=== PATIENT | female | born 1990 | race Caucasian/White ===

== ENCOUNTER → 2024-08-04 10:40 | Outpatient (BNVA) | payer MEDICAID, SELFPAY | PROVIDERS: PCP Internal Medicine; Visit Provider Internal Medicine | DX: E11.65 Type 2 diabetes mellitus with hyperglycemia (principal) | CPT/HCPCS: 82947; 83036; 99202 ==

== ENCOUNTER 2024-11-10 09:47 | Outpatient (AMB) | payer MEDICAID, SELFPAY ==
--- NOTE | 2024-11-10 09:52 | A.OFFVIS_ITS ---
Vital Signs 11/10/24 09:54 Height 5 ft 8 in Weight 229 lb 4.492 oz BMI 34.9 BP 114/76 Blood Pressure Location Rt brachial Position Sitting Pulse 87 Pulse Source Pulse Oximeter Intake Visit Reasons: DM Intake Note: Patient presents today for a follow-up on Type 2 Diabetes Mellitus: Last Diabetic eye exam was on: OVER DUE Last Podiatry exam was on: Does not see a Uniform Room Attendant Most recent HbA1c: 7.4%, 11/10/2024 Random Glucose- 231 mg/dL, Today Central Office Mechanic Required: No Accompanied by: Self / Same As Patient Allergies Penicillins Allergy (Mild, Verified 11/10/24 09:53) Unknown HPI Comments Details: The patient is a 33 year old female with diabetes follow up. She is currently Diagnosed 2016-diet controlled for awhile Current medications: With medications changed from Metformin 500x2 daily, trulicity & actos to metformin and lantus 10 units nightly, humalog ss. Has not yet started the insulin. Previous meds: Currentl off trulicity and actos 2/2 . Jardiance caused yeast infections. A1C today 7.4%, A1C in Jul 7.7% A1C in [place] 11.1. Has freestyle ynes 3 Sometimes overnight lows then high in AM. Treats with juice prn Family history of diabetes Eye exam-DUE ROS CONSTITUTIONAL: Denies weight loss, fever and chills. HEENT: Denies changes in vision and hearing. RESPIRATORY: Denies SOB and cough. CV: Denies palpitations and CP GI: Denies abdominal pain, nausea, vomiting and diarrhea. : Denies dysuria and urinary frequency. MSK: Denies new myalgia and joint pain. SKIN: Denies rash and pruritus. NEUROLOGICAL: Denies headache PSYCHIATRIC: Denies recent changes in mood. PHYSICAL EXAM: GENERAL: Alert and oriented x 3. NAD EYES: EOMI. Anicteric. HENT: Moist mucous membranes. No scleral icterus. No cervical lymphadenopathy. LUNGS: Clear to auscultation bilaterally. CARDIOVASCULAR: Regular rate and rhythm. No murmur. No JVD. ABDOMEN: Soft, non-tender +bs EXTREMITIES: No edema. Non-tender. SKIN: No rashes or lesions. Warm. NEUROLOGIC: No focal neurological deficits. CN II-XII grossly intact PSYCHIATRIC: Cooperative. Appropriate mood and affect FORMERLY [facility], [facility]1983 Medical History Panic attack Mild asthma Type 2 diabetes mellitus with hyperglycemia HTN (hypertension) Surgical History Hx of section Family History Father No problems noted. Mother No problems noted. Social History Unable to assess alcohol history related to: Unable to respond Patient Tobacco Use Status: Current everyday Tobacco user Physical Exam Vital Signs: Last Vital Signs Pulse 87 11/10/24 09:54 BP 114/76 11/10/24 09:54 BMI result Body Mass Index 34.9 Results AMB Hemoglobin A1c AMB Hemoglobin A1c 7.4 % Last Edit by HOLGER Arora on 11/10/24 10:12 Results Reviewed Results Reviewed: Laboratory Last Values Glucose (Clinic) 231 mg/dL (60-115) H 11/10/24 09:58 Assessment & Plan Assessment & Plan (1) Type 2 diabetes mellitus with hyperglycemia: Code(s): E11.65 - Type 2 diabetes mellitus with hyperglycemia Category: Medical Qualifiers: Diabetes mellitus senior living insulin use: unspecified senior living insulin use status Qualified Code(s): E11.65 - Type 2 diabetes mellitus with hyperglycemia Plan: We discussed starting the Lantus 10 units and continuing metformin She needs to get her CGM properly set up-she will see ems educator She will titrate lantus every few days to obtain goal fasting glucose or sooner if develops hypoglycemia Orders: Orders AMB Hemoglobin A1c Today E11.65 - Type 2 diabetes mellitus with hyperglycemia Referrals Diabetes Education Referral E11.65 - Type 2 diabetes mellitus with hyperglyc jey, Z34.90 - Encounter for supervision of normal , unspecified, unspecified trimester, Z79.4 - remote computer terminal operator (current) use of insulin Medications: New metformin 500 mg PO BID 180 tabs 1RF Coding Level of Care Code Est Pt Level 4 (16489) Diagnoses Type 2 diabetes mellitus with hyperglycemia, unspecified whether senior living insulin use E11.65 Diabetes mellitus senior living insulin use: unspecified senior living insulin use status
[2024-11-10 09:54] VITALS: BP 114/76; PULSE 87; BMI 34.9
[2024-11-10 10:01] LABS: Glucose, Whole Blood 231 mg/dL (60-115)
== END 2024-11-10 10:29 | disposition home or self-care (01) ==
PROVIDERS: PCP Internal Medicine; Visit Provider Internal Medicine
DX: E11.65 Type 2 diabetes mellitus with hyperglycemia (principal)

== ENCOUNTER → 2024-11-10 09:47 | Outpatient (BNVA) | payer MEDICAID, SELFPAY | PROVIDERS: PCP Internal Medicine; Visit Provider Internal Medicine | DX: O24.119 Pre-existing type 2 diabetes mellitus, in pregnancy, unspecified trimester (principal); E11.65 Type 2 diabetes mellitus with hyperglycemia; Z79.84 Long term (current) use of oral hypoglycemic drugs; Z79.4 Long term (current) use of insulin | CPT/HCPCS: 82947; 83036; 99212 ==

== ENCOUNTER 2025-01-19 08:31 | Outpatient (AMB) | payer MEDICAID, SELFPAY ==
--- NOTE | 2025-01-19 08:35 | A.OFFVIS_ITS ---
Vital Signs 01/19/25 08:38 Height 5 ft 8 in Weight 246 lb 14.684 oz BMI 37.5 BP 132/80 Blood Pressure Location Rt brachial Position Sitting Pulse 96 Pulse Source Pulse Oximeter Pulse Oximetry (%) 97 Oxygen Delivery Method Room Air Intake Visit Reasons: T2DM Intake Note: Patient presents today for a follow-up on Type 2 Diabetes Mellitus: Last Diabetic eye exam was on: OVER DUE Last Podiatry exam was on: Does not see a Crimping Machine Operator Most recent HbA1c: 7.0% 01/19/2025 Random Glucose- 142 mg/dL, Today Floor Person Required: No Accompanied by: Self / Same As Patient Allergies Penicillins Allergy (Mild, Verified 11/10/24 09:53) Unknown HPI Comments Details: The patient is a 33 year old female with diabetes follow up. She is currently Diagnosed 2016-diet controlled for awhile Current medications: With medications changed from Metformin 500x2 daily, trulicity & actos to metformin and lantus 10 units nightly, humalog ss- this is now at tresiba 20 units, humalog 10-20 with meals. Previous meds: Currently off trulicity and actos 2/2 . Jardiance caused yeast infections. A1C today 7.0% from 7.4%, A1C in Jul 7.7% A1C in [place] 11.1. Has UltiZen ynes 3 and has dexcom prefers the latter. Needs DE to set up correctly No readings <70. Feels low around 100. Following with MFM. Treats with juice prn following r/o 15s Family history of diabetes Eye exam-DUE ROS CONSTITUTIONAL: Denies weight loss, fever and chills. HEENT: Denies changes in vision and hearing. RESPIRATORY: Denies SOB and cough. CV: Denies palpitations and CP GI: Denies abdominal pain, nausea, vomiting and diarrhea. : Denies dysuria and urinary frequency. MSK: Denies new myalgia and joint pain. SKIN: Denies rash and pruritus. NEUROLOGICAL: Denies headache PSYCHIATRIC: Denies recent changes in mood. PHYSICAL EXAM: GENERAL: Alert and oriented x 3. NAD EYES: EOMI. Anicteric. HENT: Moist mucous membranes. No scleral icterus. No cervical lymphadenopathy. LUNGS: Clear to auscultation bilaterally. CARDIOVASCULAR: Regular rate and rhythm. No murmur. No JVD. ABDOMEN: Soft, non-tender +bs EXTREMITIES: No edema. Non-tender. SKIN: No rashes or lesions. Warm. NEUROLOGIC: No focal neurological deficits. CN II-XII grossly intact PSYCHIATRIC: Cooperative. Appropriate mood and affect [facility] Medical History Panic attack Mild asthma Type 2 diabetes mellitus with hyperglycemia HTN (hypertension) Surgical History Hx of section Family History Father No problems noted. Mother No problems noted. Social History Unable to assess alcohol history related to: Unable to respond Patient Tobacco Use Status: Current everyday Tobacco user Physical Exam Vital Signs: Last Vital Signs Pulse 96 01/19/25 08:38 BP 132/80 01/19/25 08:38 Pulse Ox 97 01/19/25 08:38 Oxygen Delivery Method Room Air 01/19/25 08:38 BMI result Body Mass Index 37.5 Results AMB Hemoglobin A1c AMB Hemoglobin A1c 7.0 % Last Edit by HOLGER Arora on 01/19/25 08:53 Results Reviewed Results Reviewed: Laboratory Last Values Glucose (Clinic) 142 mg/dL (60-115) H 01/19/25 08:41 Hgb A1c (Clinic) 7.0 % (4.0-6.0) H 01/19/25 08:52 Assessment & Plan Assessment & Plan (1) Type 2 diabetes mellitus with hyperglycemia: Code(s): E11.65 - Type 2 diabetes mellitus with hyperglycemia Category: Medical Qualifiers: Diabetes mellitus intermodal dispatcher insulin use: unspecified residential insulin use status Qualified Code(s): E11.65 - Type 2 diabetes mellitus with hyperglycemia (2) Insulin long-term use: Code(s): Z79.4 - intermission coordinator (current) use of insulin Category: Medical (3) : Code(s): Z34.90 - Encounter for supervision of normal , unspecified, unspecified trimester Category: Medical Qualifiers: Weeks of gestation: unspecified Qualified Code(s): Z34.90 - Encounter for supervision of normal , unspecified, unspecified trimester Plan Type 2 diabetes insulin with controlled but tighter glycemic control optimal Adjusted humalog scale higher, adjusted toujeo up to 30 Upcoming MFM Will f/up in 3 months or sooner as needed Orders: Orders AMB Hemoglobin A1c Today E11.65 - Type 2 diabetes mellitus with hyperglycemia Medications: Changed From insulin lispro (Humalog KwikPen (U-100) Insulin) Three times daily subcutaneous prior to meals BG 150-200 Take 6 units BG 201-250 Take 8 units BG 251-300 Take 10 units BG >300 Take 12 units 1 sliding scale dose subcut USEASDIRECTD 30 mL 3RF To insulin lispro (Humalog KwikPen (U-100) Insulin) Three times daily subcutaneous prior to meals BG 150-200 Take 14 units BG 201-250 Take 16 units BG 251-300 Take 18 units BG >300 Take 20 units 1 sliding scale dose subcut USEASDIRECTD 45 mL 3RF From insulin glargine (Lantus Solostar U-100 Insulin) 20 units (0.2 mL) subcut QPM 45 mL 3RF To insulin glargine (Lantus Solostar U-100 Insulin) 30 units (0.3 mL) subcut QPM 45 mL 3RF Coding Level of Care Code Est Pt Level 4 (82990) Diagnoses Type 2 diabetes mellitus with hyperglycemia, unspecified whether residential insulin use E11.65 Diabetes mellitus intermodal dispatcher insulin use: unspecified intermodal dispatcher insulin use status Insulin long-term use Z79.4 , unspecified gestational age Z34.90 Weeks of gestation: unspecified
[2025-01-19 08:38] VITALS: BP 132/80; PULSE 96; O2SAT 97; BMI 37.5
[2025-01-19 08:45] LABS: Glucose, Whole Blood 142 mg/dL (60-115)
== END 2025-01-19 09:00 | disposition home or self-care (01) ==
LOC: HO.ENCR 08:32
PROVIDERS: PCP Internal Medicine; Visit Provider Internal Medicine
DX: E11.65 Type 2 diabetes mellitus with hyperglycemia (principal); Z79.4 Long term (current) use of insulin; Z34.90 Encounter for supervision of normal pregnancy, unspecified, unspecified trimester

== ENCOUNTER → 2025-01-19 08:31 | Outpatient (BNVA) | payer MEDICAID, SELFPAY | PROVIDERS: PCP Internal Medicine; Visit Provider Internal Medicine | DX: O24.919 Unspecified diabetes mellitus in pregnancy, unspecified trimester (principal); E11.65 Type 2 diabetes mellitus with hyperglycemia; Z3A.00 Weeks of gestation of pregnancy not specified; Z79.84 Long term (current) use of oral hypoglycemic drugs; Z79.4 Long term (current) use of insulin | CPT/HCPCS: 82947; 83036; 99212 ==

== ENCOUNTER 2025-04-20 08:38 | Outpatient (AMB) | payer MEDICAID, SELFPAY ==
[2025-04-20 08:41] VITALS: BP 128/80; PULSE 108; O2SAT 97; BMI 40.9
--- NOTE | 2025-04-20 08:41 | A.OFFVIS_ITS ---
Vital Signs 04/20/25 08:41 Height 5 ft 8 in Weight 268 lb 15.423 oz BMI 40.9 BP 128/80 Blood Pressure Location Rt brachial Position Sitting Pulse 108 H Pulse Source Pulse Oximeter Pulse Oximetry (%) 97 Oxygen Delivery Method Room Air Intake Visit Reasons: T2DM Intake Note: Patient presents today for a follow-up on Type 2 Diabetes Mellitus: Last Diabetic eye exam was on: 11/24/2024, [facility] Last Podiatry exam was on: Does not see a Industrial Sales Manager Most recent HbA1c: 6.6%, 04/20/2025 Random Glucose- 162 mg/dL, Today Accompanied by: Self / Same As Patient Allergies Penicillins Allergy (Mild, Verified 11/10/24 09:53) Unknown HPI Comments Details: The patient is a 33 year old female with diabetes follow up. She is currently . Diagnosed 2016-diet controlled for awhile Current medications: Lantus 70 units Lispro 70 units tidcc Metformin managed with MFM With medications changed from Metformin 500x2 daily, trulicity & actos Previous meds: Currently off trulicity and actos 2/2 . Jardiance caused yeast infections. A1C today 6.6% 7.0% from 7.4%, A1C in Jul 7.7% A1C in [place] 11.1. Has KellBenx ynes 3 and has dexcom prefers the latter. Needs DE to set up correctly No readings <70. Feels low around 100. Following with MFM. Treats with juice prn following r/o 15s Family history of diabetes Eye exam-11/2024 ROS CONSTITUTIONAL: Denies weight loss, fever and chills. HEENT: Denies changes in vision and hearing. RESPIRATORY: Denies SOB and cough. CV: Denies palpitations and CP GI: Denies abdominal pain, nausea, vomiting and diarrhea. : Denies dysuria and urinary frequency. MSK: Denies new myalgia and joint pain. SKIN: Denies rash and pruritus. NEUROLOGICAL: Denies headache PSYCHIATRIC: Denies recent changes in mood. PHYSICAL EXAM: GENERAL: Alert and oriented x 3. NAD EYES: EOMI. Anicteric. HENT: Moist mucous membranes. No scleral icterus. No cervical lymphadenopathy. LUNGS: Clear to auscultation bilaterally. CARDIOVASCULAR: Regular rate and rhythm. No murmur. No JVD. ABDOMEN: Soft, non-tender +bs EXTREMITIES: No edema. Non-tender. SKIN: No rashes or lesions. Warm. NEUROLOGIC: No focal neurological deficits. CN II-XII grossly intact PSYCHIATRIC: Cooperative. Appropriate mood and affect FORMERLY [facility] Medical History Panic attack Mild asthma Type 2 diabetes mellitus with hyperglycemia HTN (hypertension) Surgical History Hx of section Family History Father No problems noted. Mother No problems noted. Social History Unable to assess alcohol history related to: Unable to respond Patient Tobacco Use Status: Current everyday Tobacco user Physical Exam Vital Signs: Last Vital Signs Pulse 108 H 04/20/25 08:41 BP 128/80 04/20/25 08:41 Pulse Ox 97 04/20/25 08:41 Oxygen Delivery Method Room Air 04/20/25 08:41 BMI result Body Mass Index 40.9 Results AMB Hemoglobin A1c AMB Hemoglobin A1c 6.6 % Last Edit by HOLGER Arora on 04/20/25 09:01 Results Reviewed Results Reviewed: Laboratory Last Values Glucose (Clinic) 162 mg/dL (60-115) H 04/20/25 08:46 Assessment & Plan Assessment & Plan (1) Type 2 diabetes mellitus with hyperglycemia: Code(s): E11.65 - Type 2 diabetes mellitus with hyperglycemia Category: Medical Qualifiers: Diabetes mellitus fci insulin use: unspecified terminologist insulin use status Qualified Code(s): E11.65 - Type 2 diabetes mellitus with hyperglycemia (2) Insulin long-term use: Code(s): Z79.4 - senior living (current) use of insulin Category: Medical (3) : Code(s): Z34.90 - Encounter for supervision of normal , unspecified, unspecified trimester Category: Medical Qualifiers: Weeks of gestation: unspecified Qualified Code(s): Z34.90 - Encounter for supervision of normal , unspecified, unspecified trimester Plan 34 year old female for follow up Diabetes is well controlled on current medications Post we can transition her back to regular regimen Orders: Orders AMB Hemoglobin A1c Today E11.65 - Type 2 diabetes mellitus with hyperglycemia Medications: Changed From insulin glargine (Lantus Solostar U-100 Insulin) 30 units (0.3 mL) subcut QPM 45 mL 3RF To insulin glargine (Lantus Solostar U-100 Insulin) 70 units (0.7 mL) subcut QPM 45 mL 3RF From insulin lispro (Humalog KwikPen (U-100) Insulin) Three times daily subcutaneous prior to meals BG 150-200 Take 14 units BG 201-250 Take 16 units BG 251-300 Take 18 units BG >300 Take 20 units 1 sliding scale dose subcut USEASDIRECTD 45 mL 3RF To insulin lispro (Humalog KwikPen (U-100) Insulin) 70 units TIDcc 1 sliding scale dose subcut USEASDIRECTD 45 mL 3RF Coding Level of Care Code Est Pt Level 4 (83059) Diagnoses Type 2 diabetes mellitus with hyperglycemia, unspecified whether fci insulin use E11.65 Diabetes mellitus terminologist insulin use: unspecified fci insulin use status Insulin long-term use Z79.4 , unspecified gestational age Z34.90 Weeks of gestation: unspecified
[2025-04-20 08:49] LABS: Glucose, Whole Blood 162 mg/dL (60-115)
== END 2025-04-20 09:01 | disposition home or self-care (01) ==
LOC: HO.ENCR 08:39
PROVIDERS: PCP Internal Medicine; Visit Provider Internal Medicine
DX: E11.65 Type 2 diabetes mellitus with hyperglycemia (principal); Z79.4 Long term (current) use of insulin; Z34.90 Encounter for supervision of normal pregnancy, unspecified, unspecified trimester

== ENCOUNTER → 2025-04-20 08:38 | Outpatient (BNVA) | payer MEDICAID, SELFPAY | PROVIDERS: PCP Internal Medicine; Visit Provider Internal Medicine | DX: O24.119 Pre-existing type 2 diabetes mellitus, in pregnancy, unspecified trimester (principal); E11.65 Type 2 diabetes mellitus with hyperglycemia; Z79.4 Long term (current) use of insulin; Z3A.00 Weeks of gestation of pregnancy not specified | CPT/HCPCS: 82947; 83036; 99212 ==

== ENCOUNTER 2025-07-07 10:23 | Outpatient (AMB) | payer MEDICAID, SELFPAY ==
[2025-07-07 10:27] VITALS: BP 126/90; PULSE 98; O2SAT 96; BMI 38.2
--- NOTE | 2025-07-07 10:27 | A.OFFVIS_ITS ---
Vital Signs 07/07/25 10:27 07/07/25 10:51 Height 5 ft 8 in Weight 251 lb 5.231 oz BMI 38.2 BP 126/90 H 134/86 Blood Pressure Location Rt brachial Rt brachial Position Sitting Pulse 98 Pulse Oximetry (%) 96 Oxygen Delivery Method Room Air Intake Visit Reasons: DMT2 Intake Note: Patient presents today for a follow-up on Type 2 Diabetes Mellitus: Patient no longer on insulin Last Diabetic eye exam was on: 11/24/2024, [facility] Last Podiatry exam was on: Does not see a Clinical Care Leader Most recent HbA1c: 6.6%, 04/20/2025 Random Glucose- 167 mg/dL, Today Moisture Meter Operator Required: No Accompanied by: Self / Same As Patient Allergies Penicillins Allergy (Mild, Verified 07/07/25 10:34) Unknown Medication List - Last Reconciled 07/07/25 by Hali Herrera MD albuterol sulfate 90 mcg/actuation (Ventolin HFA) 2 puffs inhalation Q6H PRN alcohol swabs (Alcohol Pads) 1 pad topical .four times daily 30 days bupropion HCl XL 150 mg PO QAM Dexcom G7 Content Specialist (blood-glucose,tobacco weigher,cont) As directed NS Dexcom G7 Sensor (blood-glucose sensor) every 10 days NS FreeStyle Mary 3 Sensor (blood-glucose sensor) every 14 days NS insulin glargine (Lantus Solostar U-100 Insulin) 70 units (0.7 mL) subcut QPM insulin lispro (Humalog KwikPen (U-100) Insulin) 1 sliding scale dose subcut USEASDIRECTD metformin 500 mg PO BID omeprazole 20 mg PO QAM pen needle, diabetic (BD Ultra-Fine Dayan Pen Needle) four times daily rosuvastatin 20 mg PO DAILY tirzepatide (Mounjaro) 2.5 mg (0.5 mL) subcut QWEEK valsartan 80 mg PO DAILY HPI Comments Details: The patient is a 34 year old female with diabetes follow up. Diagnosed 2016-diet controlled for awhile Now and off insulin. She followed with MFM during Current medications: Actos 30mg daily Mounjaro 2.5mg. She just took her second dose she is holding metformin-she has GI issues but is willing if needed Previous meds: trulicity-gi SE. Jardiance caused yeast infections. Insulin with A1C Nadia 6.6% 7.0% from 7.4% from 7.7% from 11.1. CGM reviewed. GMI 8.5%, 17% TGT, 62% high, 21 % very high No readings <70. Feels low around 100. Treats with juice prn following r/o 15s Family history of diabetes Eye exam-11/2024 ROS CONSTITUTIONAL: Denies weight loss, fever and chills. HEENT: Denies changes in vision and hearing. RESPIRATORY: Denies SOB and cough. CV: Denies palpitations and CP GI: Denies abdominal pain, nausea, vomiting and diarrhea. : Denies dysuria and urinary frequency. MSK: Denies new myalgia and joint pain. SKIN: Denies rash and pruritus. NEUROLOGICAL: Denies headache PSYCHIATRIC: Denies recent changes in mood. PHYSICAL EXAM: GENERAL: Alert and oriented x 3. NAD EYES: EOMI. Anicteric. HENT: Moist mucous membranes. No scleral icterus. No cervical lymphadenopathy. LUNGS: Clear to auscultation bilaterally. CARDIOVASCULAR: Regular rate and rhythm. No murmur. No JVD. ABDOMEN: Soft, non-tender +bs EXTREMITIES: No edema. Non-tender. SKIN: No rashes or lesions. Warm. NEUROLOGIC: No focal neurological deficits. CN II-XII grossly intact PSYCHIATRIC: Cooperative. Appropriate mood and affect [facility] Medical History (Updated 07/07/25 @ 13:56 by Hali Herrera MD) Panic attack Mild asthma Type 2 diabetes mellitus with hyperglycemia HTN (hypertension) Surgical History Hx of section Family History Father No problems noted. Mother No problems noted. Social History Unable to assess alcohol history related to: Unable to respond Patient Tobacco Use Status: Current everyday Tobacco user Physical Exam Vital Signs: Last Vital Signs Pulse 98 07/07/25 10:27 BP 134/86 07/07/25 10:51 Pulse Ox 96 07/07/25 10:27 Oxygen Delivery Method Room Air 07/07/25 10:27 BMI result Body Mass Index 38.2 Results Reviewed Results Reviewed: Laboratory Last Values Glucose (Clinic) 167 mg/dL (60-115) H 07/07/25 10:32 Assessment & Plan Assessment & Plan (1) Type 2 diabetes mellitus with hyperglycemia: Code(s): E11.65 - Type 2 diabetes mellitus with hyperglycemia Category: Medical Qualifiers: Diabetes mellitus medical terminologist insulin use: unspecified [facility] insulin use status Qualified Code(s): E11.65 - Type 2 diabetes mellitus with hyperglycemia Plan 34 year old female for DM follow up. DM uncontrolled at present continue mounjaro 2.5mg with goal to uptitrate. Start glipizide 10mg daily. Continue actos. Will try to keep her off metformin Treat any hypoglycemia by rules of 15s Return for A1C or sooner as needed Medications: New glipizide ER 10 mg (2 x 5 mg) PO DAILY 180 tabs 1RF On Hold metformin Hold Comment: Doctor's Order 500 mg PO BID 180 tabs 1RF Coding Level of Care Code Est Pt Level 4 (60171) Diagnoses Type 2 diabetes mellitus with hyperglycemia, unspecified whether [facility] insulin use E11.65 Diabetes mellitus [facility] insulin use: unspecified [facility] insulin use status
[2025-07-07 10:35] LABS: Glucose, Whole Blood 167 mg/dL (60-115)
[2025-07-07 10:51] VITALS: BP 134/86
== END 2025-07-07 10:53 | disposition home or self-care (01) ==
LOC: HO.ENCR 10:24
PROVIDERS: PCP Internal Medicine; Visit Provider Internal Medicine
DX: E11.65 Type 2 diabetes mellitus with hyperglycemia (principal)

== ENCOUNTER → 2025-07-07 10:23 | Outpatient (BNVA) | payer MEDICAID, SELFPAY | PROVIDERS: PCP Internal Medicine; Visit Provider Internal Medicine | DX: E11.65 Type 2 diabetes mellitus with hyperglycemia (principal); Z79.85 Long-term (current) use of injectable non-insulin antidiabetic drugs | CPT/HCPCS: 82947; 99212 ==

== ENCOUNTER 2025-09-07 09:10 | Outpatient (AMB) | payer MEDICAID, SELFPAY ==
--- NOTE | 2025-09-07 09:12 | MHC.OFFVIS ---
Vital Signs 09/07/25 09:13 Height 5 ft 8 in Weight 238 lb 1.588 oz BMI 36.2 BP 118/80 Blood Pressure Location Rt brachial Position Sitting Pulse 97 Pulse Source Pulse Oximeter Pulse Oximetry (%) 97 Oxygen Delivery Method Room Air Intake Visit Reasons: T2DM Intake Note: Patient presents today for a follow-up on Type 2 Diabetes Mellitus: Last Diabetic eye exam was on: 11/24/2024, [facility] Last Podiatry exam was on: Does not see a Digital Product Manager Most recent HbA1c: 7.0%, 09/07/1025 Random Glucose- 138 mg/dL, Today Type Photography Supervisor Required: No Accompanied by: Self / Same As Patient Allergies Penicillins Allergy (Mild, Verified 09/07/25 09:12) Unknown Medication List - Last Reconciled 09/07/25 by Hali Herrera MD albuterol sulfate 90 mcg/actuation (Ventolin HFA) 2 puffs inhalation Q6H PRN alcohol swabs (Alcohol Pads) 1 pad topical .four times daily 30 days blood-glucose sensor (FreeStyle Mary 2 Plus Sensor) bupropion HCl XL 150 mg PO QAM Dexcom G7 Alterations Supervisor (blood-glucose,senior controller,cont) As directed NS Dexcom G7 Sensor (blood-glucose sensor) every 10 days NS FreeStyle Mary 3 Sensor (blood-glucose sensor) every 14 days NS glipizide ER 10 mg (2 x 5 mg) PO DAILY metformin 500 mg PO BID Held on 07/07/25. Instructions: Doctor's Order omeprazole 20 mg PO QAM pen needle, diabetic (BD Ultra-Fine Dayan Pen Needle) four times daily rosuvastatin 20 mg PO DAILY tirzepatide (Mounjaro) 5 mg (0.5 mL) subcut QWEEK tirzepatide (Mounjaro) 2.5 mg (0.5 mL) subcut QWEEK valsartan 80 mg PO DAILY HPI Comments Details: The patient is a 34 year old female with diabetes follow up. Diagnosed 2015-diet controlled for awhile Now and off insulin. She followed with [facility] during Current medications: Actos 30mg daily-stopped Glipizide 10mg-doesn't take regularly Mounjaro 5mg daily Previous meds: trulicity-gi SE. Jardiance caused yeast infections. Insulin with . metformin GI issues A1C 7.0% April 6.6% 7.0% from 7.4% from 7.7% from 11.1. CGM reviewed. GMI last visit 8.5%, 17% TGT, 62% high, 21 % very high. Insurance no longer covering. Reports she has been having some overnight hypoglycemia No readings <70. Feels low around 100. Treats with juice prn following r/o 15s Family history of diabetes Eye exam-11/2024 ROS CONSTITUTIONAL: Denies weight loss, fever and chills. HEENT: Denies changes in vision and hearing. RESPIRATORY: Denies SOB and cough. CV: Denies palpitations and CP GI: Denies abdominal pain, nausea, vomiting and diarrhea. : Denies dysuria and urinary frequency. MSK: Denies new myalgia and joint pain. SKIN: Denies rash and pruritus. NEUROLOGICAL: Denies headache PSYCHIATRIC: Denies recent changes in mood. PHYSICAL EXAM: GENERAL: Alert and oriented x 3. NAD EYES: EOMI. Anicteric. HENT: Moist mucous membranes. No scleral icterus. No cervical lymphadenopathy. LUNGS: Clear to auscultation bilaterally. CARDIOVASCULAR: Regular rate and rhythm. No murmur. No JVD. ABDOMEN: Soft, non-tender +bs EXTREMITIES: No edema. Non-tender. SKIN: No rashes or lesions. Warm. NEUROLOGIC: No focal neurological deficits. CN II-XII grossly intact PSYCHIATRIC: Cooperative. Appropriate mood and affect [facility] Medical History Panic attack Mild asthma Type 2 diabetes mellitus with hyperglycemia HTN (hypertension) Surgical History Hx of section Family History Father No problems noted. Mother No problems noted. Social History Patient Tobacco Use Status: Current everyday Tobacco user Physical Exam Vital Signs: Last Vital Signs Pulse 97 09/07/25 09:13 BP 118/80 09/07/25 09:13 Pulse Ox 97 09/07/25 09:13 Oxygen Delivery Method Room Air 09/07/25 09:13 BMI result Body Mass Index 36.2 Assessment & Plan Assessment & Plan (1) Type 2 diabetes mellitus with hyperglycemia: Code(s): E11.65 - Type 2 diabetes mellitus with hyperglycemia Category: Medical Qualifiers: Diabetes mellitus terminal operations manager insulin use: unspecified senior living insulin use status Qualified Code(s): E11.65 - Type 2 diabetes mellitus with hyperglycemia (2) Hypoglycemia: Code(s): E16.2 - Hypoglycemia, unspecified Category: Medical Plan 34 year old female presenting for follow up A1C at 7.0%. Goal < 7.0%, preferably 6.5%. Having some hypoglycemic symptoms overnight. She would benefit from CGM Continued effort weight loss, increase mounjaro to 7.5mg daily to help overall glycemic control. Consider continued increase as tolerated Treat hypoglycemia by rules of 15s Return in 3 months for diabetes or sooner as needed Orders: Orders AMB Hemoglobin A1c Today E11.65 - Type 2 diabetes mellitus with hyperglycemia Medications: New Mounjaro (tirzepatide) 7.5 mg (0.5 mL) subcut QWEEK 2 mL 1RF NS E11.65 - Type 2 diabetes mellitus with hyperglycemia, Z79.4 - senior living (current) use of insulin Refilled Dexcom G7 Sensor (blood-glucose sensor) every 10 days 6 ea 3RF NS E11.65 - Type 2 diabetes mellitus with hyperglycemia, E16.2 - Hypoglycemia, unspecified Discontinued tirzepatide (Mounjaro) Discontinued Reason: Doctor's Order 5 mg (0.5 mL) subcut QWEEK 6 mL 3RF E11.65 - Type 2 diabetes mellitus with hyperglycemia, Z79.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
[2025-09-07 09:13] VITALS: BP 118/80; PULSE 97; O2SAT 97; BMI 36.2
[2025-09-07 15:08] LABS: Glucose, Whole Blood 138 mg/dL (60-115)
== END 2025-09-07 09:53 | disposition home or self-care (01) ==
LOC: HO.ENCR 09:10
PROVIDERS: Visit Provider Internal Medicine
DX: E11.65 Type 2 diabetes mellitus with hyperglycemia (principal); E16.2 Hypoglycemia, unspecified

== ENCOUNTER → 2025-09-07 09:10 | Outpatient (BNVA) | payer MEDICAID, SELFPAY | PROVIDERS: Visit Provider Internal Medicine | DX: E11.65 Type 2 diabetes mellitus with hyperglycemia (principal); E16.2 Hypoglycemia, unspecified | CPT/HCPCS: 82947; 99212 ==